=== PATIENT | male | born 1995 | race African-American/Black ===

== ENCOUNTER 2021-09-12 10:30 | Emergency (ER) | payer BC, OTHER ==
[~2021-09-12] VITALS: Ht 175.3 cm; Wt 73.5 kg
[2021-09-12 10:58] VITALS: BP 141/88
[2021-09-12] MEDS ORDERED: PANTOPRAZOLE 40 MG/10 ML VIAL INJ IV ONE (11:00)
[2021-09-12] MEDS ORDERED: SODIUM CHLORIDE 0.9% 500 ML IV ONE (11:00)
== END 2021-09-12 11:42 | disposition left against medical advice (07) ==
LOC: ER 10:30 → EDBD 10:30 → ER 11:42
DX: F12.188 Cannabis abuse with other cannabis-induced disorder (principal); R10.30 Lower abdominal pain, unspecified
CPT/HCPCS: 93005; 96361; 96374; 99283; C9113; J7040